=== PATIENT | male | born 1980 | race African-American/Black ===

== ENCOUNTER 2017-04-28 21:57 | Inpatient (IN) | payer MEDICAID, OTHER ==
[~2017-04-28] VITALS: Ht 182.9 cm; Wt 80.8 kg
[~2017-04-28 21:57] MED LIST: AMLO5TAB66 PO; CLON.5 PO; DIVA250T45 PO; QUET100T PO
[2017-04-28] MEDS ORDERED: LORazepam 2 MG/ML VIAL IM ONE (22:15)
[2017-04-28] MEDS ORDERED: DiphenhydrAMINE HCL 50 MG/ML VIAL IM ONE (22:15)
[2017-04-28] MEDS ORDERED: HALOPERIDOL LACTATE 5 MG/ML VIAL IM ONE (22:15)
[2017-04-28 22:29] LABS: BASOPHILS % (AUTO) 0.7 % (0.0-2.0); EOSINOPHILS % (AUTO) 2.4 % (1.0-6.0); HEMATOCRIT 38.3 % (41-53); HEMOGLOBIN 12.9 g/dL (13.5-17.5); LYMPHOCYTES # (AUTO) 1.6 K/uL (1.0-4.8); LYMPHOCYTES % (AUTO) 44.4 % (22.0-44.0); MEAN CORPUSCULAR HEMOGLOBIN 32.8 pg (26.0-34.0); MEAN CORPUSCULAR HGB CONC 33.7 G/dL (31.0-37.0); MEAN CORPUSCULAR VOLUME 97 fL (80-100); MONOCYTES # (AUTO) 0.4 K/uL (0.1-1.0); MONOCYTES % (AUTO) 10.3 % (2.0-9.0); NEUTROPHILS # (AUTO) 1.5 K/uL (1.8-7.7); NEUTROPHILS % (AUTO) 42.2 % (40.0-70.0); PLATELET COUNT (AUTO) 268 K/uL (150-450); RED BLOOD CELL COUNT(AUTO) 3.93 MIL/uL (4.50-5.90); RED CELL DISTRIBUTION WIDTH 15.8 % (11.5-14.5); WHITE BLOOD COUNT (AUTO) 3.5 K/uL (4.5-11.0)
[2017-04-28 22:38] LABS: ANION GAP 9 mmol/L (8-16); CALCIUM, TOTAL 8.8 mg/dL (8.8-10.5); CARBON DIOXIDE 27 mmol/L (22-29); CHLORIDE 105 mmol/L (98-107); CREATININE 0.85 mg/dL (0.60-1.30); GLOMERULAR FILTR. RATE CALC > 60 mL/min (>60); POTASSIUM 3.1 mmol/L (3.5-5.1); SODIUM SERUM 141 mmol/L (136-145); UREA NITROGEN, BLOOD 16 mg/dL (7-18)
[2017-04-28 22:44] LABS: ALANINE AMINOTRANSFERASE 21 U/L (12-78); ALBUMIN 3.7 g/dL (3.4-5.0); ASPARTATE AMINOTRANSFERASE 15 U/L (15-37); BILIRUBIN,TOTAL 0.2 mg/dL (0.1-1.0); TOTAL PROTEIN, SERUM 7.6 g/dL (6.4-8.2)
[2017-04-28] MEDS ORDERED: POTASSIUM CHLORIDE 20 MEQ ER TABLET PO ONE (23:30)
[2017-04-28] MEDS ORDERED: LORazepam 2 MG TABLET PO PRN (23:45)
[2017-04-28] MEDS ORDERED: ZOLPIDEM TARTRATE 10 MG TABLET PO PRN (23:45)
[2017-04-28] MEDS ORDERED: HALOPERIDOL 5 MG TABLET PO PRN (23:45)
[2017-04-29 00:10] LABS: APPEARANCE,URINE CLOUDY (CLEAR); GLUCOSE, URINE (UA) NEGATIVE (NEGATIVE); KETONES,URINE NEGATIVE (NEGATIVE); LEUKOCYTE ESTERASE ,URINE NEGATIVE (NEGATIVE); OCCULT BLOOD,URINE NEGATIVE (NEGATIVE); PROTEIN,URINE NEGATIVE (NEGATIVE)
[2017-04-29 00:17] LABS: ADD UA MICROSCOPIC NO
[2017-04-29 00:19] LABS: CHOL/HDL RATIO 1.8 (4.2-7.3)
[2017-04-29 20:52] VITALS: BP 134/83
[2017-04-29] MEDS ORDERED: -PHARMACY VACCINE NOTE- MISC ONE ×2 (21:30)
[2017-04-29] MEDS ORDERED: INFLUENZA VIRUS VACCINE QVS 2017-18 (3YR+)/PF 60 MCG/0.5 ML SYRINGE IM ONE (21:30)
[2017-04-30 08:00] VITALS: BP 127/76
[2017-04-30] MEDS ORDERED: POTASSIUM CHLORIDE 20 MEQ ER TABLET PO ONE (15:30)
[2017-04-30] MEDS: QUEtiapine FUMARATE 200 MG TABLET PO SCH (21:42)
[2017-04-30] MEDS: DIVALPROEX SODIUM 500 MG ER TABLET PO SCH (21:42)
[2017-04-30] MEDS: DIVALPROEX SODIUM 250 MG ER TABLET PO SCH (21:42)
[2017-05-01 07:26] LABS: ANION GAP 4 mmol/L (8-16); CALCIUM, TOTAL 8.6 mg/dL (8.8-10.5); CARBON DIOXIDE 31 mmol/L (22-29); CHLORIDE 103 mmol/L (98-107); CREATININE 0.84 mg/dL (0.60-1.30); GLOMERULAR FILTR. RATE CALC > 60 mL/min (>60); POTASSIUM 3.7 mmol/L (3.5-5.1); SODIUM SERUM 138 mmol/L (136-145); UREA NITROGEN, BLOOD 16 mg/dL (7-18)
[2017-05-01 09:33] VITALS: BP 148/85
[2017-05-01 17:03] VITALS: BP 139/87
[2017-05-01] MEDS: QUEtiapine FUMARATE 200 MG TABLET PO SCH (20:19)
[2017-05-01] MEDS: DIVALPROEX SODIUM 500 MG ER TABLET PO SCH (20:19)
[2017-05-01] MEDS: DIVALPROEX SODIUM 250 MG ER TABLET PO SCH (20:20)
[2017-05-02 07:27] LABS: ANION GAP 5 mmol/L (8-16); CALCIUM, TOTAL 8.8 mg/dL (8.8-10.5); CARBON DIOXIDE 32 mmol/L (22-29); CHLORIDE 102 mmol/L (98-107); CREATININE 0.88 mg/dL (0.60-1.30); GLOMERULAR FILTR. RATE CALC > 60 mL/min (>60); POTASSIUM 4.1 mmol/L (3.5-5.1); SODIUM SERUM 139 mmol/L (136-145); UREA NITROGEN, BLOOD 14 mg/dL (7-18)
[2017-05-02 08:34] VITALS: BP 126/69
[2017-05-02] MEDS ORDERED: QUET200T PO (10:29)
[2017-05-02] MEDS ORDERED: DIVA500T52 PO (10:29)
== END 2017-05-02 13:09 | disposition home or self-care (01) | DRG 750 ==
LOC: EMS 21:58 → 3EC 04-29 15:26
DX: F25.1 Schizoaffective disorder, depressive type (principal); R45.851 Suicidal ideations; Z59.0 Homelessness; I10 Essential (primary) hypertension; F15.10 Other stimulant abuse, uncomplicated; E87.6 Hypokalemia; D64.9 Anemia, unspecified; F12.10 Cannabis abuse, uncomplicated; K21.9 Gastro-esophageal reflux disease without esophagitis; Z79.899 Other long term (current) drug therapy; Z87.891 Personal history of nicotine dependence; Z91.5 Personal history of self-harm; R53.1 Weakness; Z87.828 Personal history of other (healed) physical injury and trauma; Z28.21 Immunization not carried out because of patient refusal; Z71.51 Drug abuse counseling and surveillance of drug abuser
CPT/HCPCS: 96372; 99285; G0480; J1200; J1630; J2060

== ENCOUNTER 2017-06-10 22:37 | Inpatient (IN) | payer MEDICAID, OTHER ==
[~2017-06-10] VITALS: Ht 182.9 cm; Wt 85.9 kg
[~2017-06-10 22:37] MED LIST changes: -AMLO5TAB66 PO; -CLON.5 PO; -DIVA250T45 PO; +DIVA500T52 PO; -QUET100T PO; +QUET200T PO
[2017-06-10 23:24] LABS: BASOPHILS % (AUTO) 0.1 % (0.0-2.0); EOSINOPHILS % (AUTO) 2.4 % (1.0-6.0); HEMATOCRIT 37.6 % (41-53); HEMOGLOBIN 12.7 g/dL (13.5-17.5); LYMPHOCYTES # (AUTO) 1.5 K/uL (1.0-4.8); LYMPHOCYTES % (AUTO) 31.2 % (22.0-44.0); MEAN CORPUSCULAR HEMOGLOBIN 33.1 pg (26.0-34.0); MEAN CORPUSCULAR HGB CONC 33.8 G/dL (31.0-37.0); MEAN CORPUSCULAR VOLUME 98 fL (80-100); MONOCYTES # (AUTO) 0.5 K/uL (0.1-1.0); MONOCYTES % (AUTO) 11.1 % (2.0-9.0); NEUTROPHILS # (AUTO) 2.7 K/uL (1.8-7.7); NEUTROPHILS % (AUTO) 55.2 % (40.0-70.0); PLATELET COUNT (AUTO) 212 K/uL (150-450); RED BLOOD CELL COUNT(AUTO) 3.84 MIL/uL (4.50-5.90); RED CELL DISTRIBUTION WIDTH 15.1 % (11.5-14.5); WHITE BLOOD COUNT (AUTO) 4.9 K/uL (4.5-11.0)
[2017-06-10 23:58] LABS: ALANINE AMINOTRANSFERASE 28 U/L (12-78); ALBUMIN 3.4 g/dL (3.4-5.0); ANION GAP 7 mmol/L (8-16); ASPARTATE AMINOTRANSFERASE 22 U/L (15-37); BILIRUBIN,TOTAL 0.2 mg/dL (0.1-1.0); CALCIUM, TOTAL 8.7 mg/dL (8.8-10.5); CARBON DIOXIDE 29 mmol/L (22-29); CHLORIDE 105 mmol/L (98-107); CREATININE 1.06 mg/dL (0.60-1.30); GLOMERULAR FILTR. RATE CALC > 60 mL/min (>60); POTASSIUM 3.6 mmol/L (3.5-5.1); SODIUM SERUM 141 mmol/L (136-145); TOTAL PROTEIN, SERUM 7.2 g/dL (6.4-8.2); UREA NITROGEN, BLOOD 25 mg/dL (7-18)
[2017-06-11 07:49] LABS: APPEARANCE,URINE CLEAR (CLEAR); GLUCOSE, URINE (UA) NEGATIVE (NEGATIVE); KETONES,URINE NEGATIVE (NEGATIVE); LEUKOCYTE ESTERASE ,URINE NEGATIVE (NEGATIVE); OCCULT BLOOD,URINE NEGATIVE (NEGATIVE); PH,URINE 6.5 (5.0-8.0); PROTEIN,URINE NEGATIVE (NEGATIVE)
[2017-06-11 07:54] LABS: ADD UA MICROSCOPIC NO
[2017-06-11 14:35] VITALS: BP 159/71
[2017-06-11] MEDS ORDERED: DIVA250T45 PO (15:06)
[2017-06-11] MEDS ORDERED: INFLUENZA VIRUS VACCINE QVS 2017-18 (3YR+)/PF 60 MCG/0.5 ML SYRINGE IM ONE (15:15)
[2017-06-11] MEDS ORDERED: -PHARMACY VACCINE NOTE- MISC ONE ×2 (15:15)
[2017-06-11 16:00] VITALS: BP 115/70
[2017-06-12 06:29] VITALS: BP 137/67
[2017-06-12 09:04] LABS: CHOL/HDL RATIO 2.1 (4.2-7.3); THYROID STIMULATING HORMONE 0.65 uIU/mL (0.36-3.74)
[2017-06-12 09:06] LABS: VALPROIC ACID < 3 mcg/mL (50-100)
[2017-06-12 09:12] VITALS: BP 114/54
[2017-06-12 16:14] VITALS: BP 122/74
[2017-06-12] MEDS: DIVALPROEX SODIUM 250 MG ER TABLET PO SCH (20:09)
[2017-06-12] MEDS: QUEtiapine FUMARATE 200 MG TABLET PO SCH (20:09)
[2017-06-13 00:04] VITALS: BP 111/62
[2017-06-13 08:00] VITALS: BP 114/60
[2017-06-13 16:00] VITALS: BP 126/76
[2017-06-13] MEDS: QUEtiapine FUMARATE 100 MG TABLET PO PRN (16:24)
[2017-06-13] MEDS: LORazepam 2 MG TABLET PO PRN ×2 (16:24→21:01)
[2017-06-13] MEDS: ZOLPIDEM TARTRATE 10 MG TABLET PO PRN (21:01)
[2017-06-13] MEDS: QUEtiapine FUMARATE 200 MG TABLET PO SCH (21:01)
[2017-06-13] MEDS: DIVALPROEX SODIUM 250 MG ER TABLET PO SCH (21:01)
[2017-06-14 06:47] VITALS: BP 106/60
[2017-06-14 08:06] VITALS: BP 103/49
[2017-06-14 16:00] VITALS: BP 138/86
[2017-06-14] MEDS: ZOLPIDEM TARTRATE 10 MG TABLET PO PRN (20:02)
[2017-06-14] MEDS: QUEtiapine FUMARATE 200 MG TABLET PO SCH (20:03)
[2017-06-14] MEDS: DIVALPROEX SODIUM 250 MG ER TABLET PO SCH (20:03)
[2017-06-15 06:34] VITALS: BP 115/66
[2017-06-15 08:04] VITALS: BP 116/62
[2017-06-15 16:00] VITALS: BP 125/73
[2017-06-15] MEDS: LORazepam 2 MG TABLET PO PRN (16:27)
[2017-06-15] MEDS: QUEtiapine FUMARATE 100 MG TABLET PO PRN (16:27)
[2017-06-15] MEDS: DIVALPROEX SODIUM 250 MG ER TABLET PO SCH (20:44)
[2017-06-15] MEDS: QUEtiapine FUMARATE 200 MG TABLET PO SCH (20:44)
[2017-06-16 04:09] VITALS: BP 137/99
[2017-06-16 08:16] VITALS: BP 135/68
[2017-06-16] MEDS: LORazepam 2 MG TABLET PO PRN (08:42)
[2017-06-16] MEDS: QUEtiapine FUMARATE 100 MG TABLET PO PRN (08:42)
== END 2017-06-16 13:10 | disposition home or self-care (01) | DRG 750 ==
LOC: EMS 22:39 → B3A 06-11 12:52
PROVIDERS: ADMIT Psychiatry & Neurology Psychiatry; ATTEND Psychiatry & Neurology Child & Adolescent Psychiatry
DX: F25.1 Schizoaffective disorder, depressive type (principal); R45.851 Suicidal ideations; Z59.0 Homelessness; I10 Essential (primary) hypertension; F17.210 Nicotine dependence, cigarettes, uncomplicated; K21.9 Gastro-esophageal reflux disease without esophagitis; R53.1 Weakness; D64.9 Anemia, unspecified; F15.10 Other stimulant abuse, uncomplicated; F12.10 Cannabis abuse, uncomplicated; E87.6 Hypokalemia; Z79.899 Other long term (current) drug therapy
CPT/HCPCS: 84443; 87081; 99285; G0480

== ENCOUNTER 2018-03-08 18:11 | Inpatient (IN) | payer MEDICAID, OTHER ==
[~2018-03-08] VITALS: Ht 177.8 cm; Wt 88.7 kg
[~2018-03-08 18:11] MED LIST changes: +DIVA250T45 PO; -DIVA500T52 PO
[2018-03-08 20:40] LABS: AMPHET/METH SCREEN,URINE POSITIVE (NEGATIVE); BARBITURATE SCREEN, URINE NEGATIVE (NEGATIVE); BENZODIAZEPINES SCREEN,URINE NEGATIVE (NEGATIVE); CANNABINOID SCREEN,URINE POSITIVE (NEGATIVE); COCAINE SCREEN,URINE NEGATIVE (NEGATIVE); METHADONE SCREEN, URINE NEGATIVE (NEGATIVE); OPIATE SCREEN,URINE NEGATIVE (NEGATIVE)
[2018-03-08 20:42] LABS: PHENCYCLIDINE SCREEN,URINE NEGATIVE (NEGATIVE)
[2018-03-08] MEDS ORDERED: PROZ10 PO (20:45)
[2018-03-08 20:55] LABS: BASOPHILS % (AUTO) 1.1 % (0.0-2.0); EOSINOPHILS % (AUTO) 1.1 % (1.0-6.0); HEMATOCRIT 40.5 % (41-53); HEMOGLOBIN 13.6 g/dL (13.5-17.5); LYMPHOCYTES # (AUTO) 1.7 K/uL (1.0-4.8); LYMPHOCYTES % (AUTO) 51.4 % (22.0-44.0); MEAN CORPUSCULAR HEMOGLOBIN 32.6 pg (26.0-34.0); MEAN CORPUSCULAR HGB CONC 33.6 G/dL (31.0-37.0); MEAN CORPUSCULAR VOLUME 97 fL (80-100); MONOCYTES # (AUTO) 0.5 K/uL (0.1-1.0); MONOCYTES % (AUTO) 13.9 % (2.0-9.0); NEUTROPHILS # (AUTO) 1.1 K/uL (1.8-7.7); NEUTROPHILS % (AUTO) 32.5 % (40.0-70.0); PLATELET COUNT (AUTO) 201 K/uL (150-450); RED BLOOD CELL COUNT(AUTO) 4.17 MIL/uL (4.50-5.90); RED CELL DISTRIBUTION WIDTH 14.6 % (11.5-14.5)
[2018-03-08 21:05] LABS: ANION GAP 7 mmol/L (8-16); CALCIUM, TOTAL 8.9 mg/dL (8.8-10.5); CARBON DIOXIDE 29 mmol/L (22-29); CHLORIDE 103 mmol/L (98-107); CREATININE 0.97 mg/dL (0.60-1.30); GLOMERULAR FILTR. RATE CALC > 60 mL/min (>60); GLUCOSE,RANDOM 80 mg/dL (70-110); POTASSIUM 3.7 mmol/L (3.5-5.1); SODIUM SERUM 139 mmol/L (136-145); UREA NITROGEN, BLOOD 16 mg/dL (7-18)
[2018-03-08 21:11] LABS: ALANINE AMINOTRANSFERASE 13 U/L (12-78); ALBUMIN 3.3 g/dL (3.4-5.0); ALKALINE PHOSPHATASE 69 U/L (46-116); ASPARTATE AMINOTRANSFERASE 11 U/L (15-37); BILIRUBIN,TOTAL 0.2 mg/dL (0.1-1.0); TOTAL PROTEIN, SERUM 6.9 g/dL (6.4-8.2)
[2018-03-08 21:33] LABS: VALPROIC ACID < 3 mcg/mL (50-100)
[2018-03-08] MEDS ORDERED: ZOLPIDEM TARTRATE 10 MG TABLET PO PRN (22:00)
[2018-03-08] MEDS: HALOPERIDOL 5 MG TABLET PO PRN (22:18)
[2018-03-08] MEDS: LORazepam 2 MG TABLET PO PRN (22:18)
[2018-03-09 00:20] VITALS: BP 118/61
[2018-03-09 07:11] LABS: CHOL/HDL RATIO 2.5 (4.2-7.3); FREE T4 (FREE THYROXINE) 0.85 ng/dL (0.76-1.46); THYROID STIMULATING HORMONE 1.63 uIU/mL (0.36-3.74)
[2018-03-09 07:14] LABS: HEMOGLOBIN A1C 5.7 % (4.5-6.2)
[2018-03-09 08:53] VITALS: BP 112/74
[2018-03-09] MEDS ORDERED: MAG HYDROX/AL HYDROX/SIMETH ES 30 ML SUSPENSION UDCUP PO PRN (13:30)
[2018-03-09] MEDS ORDERED: ACETAMINOPHEN 325 MG TABLET PO PRN (13:30)
[2018-03-09] MEDS ORDERED: ONDANSETRON HCL 4 MG TABLET PO PRN (13:30)
[2018-03-09] MEDS ORDERED: GuaiFENesin/D-METHORPHAN [SUGAR-FREE] 200-20MG/10 ML SYRUP UDCUP PO PRN (13:30)
[2018-03-09] MEDS ORDERED: NICOTINE 14 MG/24 HOUR PATCH TD PRN (13:30)
[2018-03-09] MEDS ORDERED: PETROLATUM,WHITE 71 GM JELLY TP PRN (13:30)
[2018-03-09] MEDS ORDERED: IBUPROFEN 400 MG TABLET PO PRN (13:30)
[2018-03-09] MEDS ORDERED: CloNIDine HCL 0.1 MG TABLET PO PRN (13:30)
[2018-03-09] MEDS ORDERED: LOPERAMIDE HCL 2 MG CAPSULE PO PRN (13:30)
[2018-03-09] MEDS ORDERED: DOCUSATE SODIUM 100 MG CAPSULE PO PRN (13:30)
[2018-03-09] MEDS ORDERED: MAGNESIUM HYDROXIDE SUSPENSION 30 ML UDCUP PO PRN (13:30)
[2018-03-09] MEDS ORDERED: ALBUTEROL SULFATE HFA 90 MCG/PUFF 8 GM INHALER IH PRN (13:30)
[2018-03-09] MEDS: LevETIRAcetam 500 MG TABLET PO SCH (16:26)
[2018-03-09 16:51] VITALS: BP 103/66
[2018-03-09] MEDS: MIRTAZAPINE 15 MG TABLET PO SCH (20:51)
[2018-03-10 08:40] VITALS: BP 126/84
[2018-03-10] MEDS: ARIPiprazole 10 MG TABLET PO SCH (08:45)
[2018-03-10] MEDS: LevETIRAcetam 500 MG TABLET PO SCH ×2 (08:45→17:37)
[2018-03-10] MEDS ORDERED: LORazepam 2 MG/ML VIAL ONE (12:58)
[2018-03-10] MEDS ORDERED: HALOPERIDOL LACTATE 5 MG/ML VIAL ONE (12:58)
[2018-03-10] MEDS ORDERED: LORazepam 2 MG/ML VIAL IM ONE (13:00)
[2018-03-10] MEDS ORDERED: DiphenhydrAMINE HCL 50 MG/ML VIAL IM ONE (13:00)
[2018-03-10] MEDS ORDERED: HALOPERIDOL LACTATE 5 MG/ML VIAL IM ONE (13:00)
[2018-03-10] MEDS: MIRTAZAPINE 15 MG TABLET PO SCH (20:04)
[2018-03-11 08:08] VITALS: BP 103/60
[2018-03-11] MEDS: LevETIRAcetam 500 MG TABLET PO SCH ×2 (09:56→16:23)
[2018-03-11] MEDS: ARIPiprazole 10 MG TABLET PO SCH (09:56)
[2018-03-11] MEDS: MIRTAZAPINE 15 MG TABLET PO SCH (21:01)
[2018-03-12 08:13] VITALS: BP 120/70
[2018-03-12] MEDS: ARIPiprazole 10 MG TABLET PO SCH (08:20)
[2018-03-12] MEDS: LevETIRAcetam 500 MG TABLET PO SCH ×2 (08:20→16:49)
[2018-03-12] MEDS: MIRTAZAPINE 15 MG TABLET PO SCH (20:16)
[2018-03-12 20:59] VITALS: BP 121/77
[2018-03-13 07:27] LABS: FOLATE SERUM 11.1 ng/mL (5.4-)
[2018-03-13] MEDS: HALOPERIDOL 5 MG TABLET PO PRN (07:50)
[2018-03-13] MEDS: LevETIRAcetam 500 MG TABLET PO SCH (07:50)
[2018-03-13] MEDS: ARIPiprazole 10 MG TABLET PO SCH (07:50)
[2018-03-13] MEDS: LORazepam 2 MG TABLET PO PRN (07:50)
[2018-03-13] MEDS ORDERED: ARIP10TA8 PO (12:11)
[2018-03-13] MEDS ORDERED: MIRT15 PO (12:12)
== END 2018-03-13 14:45 | disposition home or self-care (01) | DRG 750 ==
LOC: EMS 18:12 → 3EC 21:30
PROVIDERS: ADMIT Psychiatry & Neurology Psychiatry; ATTEND Psychiatry & Neurology Psychiatry
DX: F25.1 Schizoaffective disorder, depressive type (principal); R45.851 Suicidal ideations; G40.909 Epilepsy, unspecified, not intractable, without status epilepticus; D72.819 Decreased white blood cell count, unspecified; F41.9 Anxiety disorder, unspecified; F17.210 Nicotine dependence, cigarettes, uncomplicated; F12.10 Cannabis abuse, uncomplicated; F15.10 Other stimulant abuse, uncomplicated; I10 Essential (primary) hypertension; K21.9 Gastro-esophageal reflux disease without esophagitis; Z59.0 Homelessness; Z79.899 Other long term (current) drug therapy; Z87.820 Personal history of traumatic brain injury; Z91.19 Patient's noncompliance with other medical treatment and regimen; Z71.6 Tobacco abuse counseling; Z71.51 Drug abuse counseling and surveillance of drug abuser; Z71.41 Alcohol abuse counseling and surveillance of alcoholic
CPT/HCPCS: 82607; 82746; 83036; 84439; 84443; 99285; 99406; G0480; J1200; J1630; J2060